=== PATIENT | female | born 1995 | race Caucasian/White ===

== ENCOUNTER 2019-11-05 21:59 | Emergency (ER) | payer OTHER ==
[~2019-11-05] VITALS: Ht 170.2 cm; Wt 83.2 kg
[2019-11-05] MEDS ORDERED: famotidine 20mg tablet PO ONE (22:35)
[2019-11-05 22:51] VITALS: BP 116/74
== END 2019-11-05 22:53 | disposition home or self-care (01) ==
LOC: ER 22:00
DX: L50.9 Urticaria, unspecified (principal); T39.1X5A Adverse effect of 4-Aminophenol derivatives, initial encounter; Z88.0 Allergy status to penicillin; Z88.5 Allergy status to narcotic agent; Z91.018 Allergy to other foods; Y92.89 Other specified places as the place of occurrence of the external cause
CPT/HCPCS: 99282

== ENCOUNTER 2020-05-13 08:28 | Emergency (ER) | payer OTHER ==
[~2020-05-13] VITALS: Ht 172.7 cm; Wt 86.4 kg
[2020-05-13] MEDS ORDERED: CLIN150C2 PO (08:56)
[2020-05-13] MEDS ORDERED: POLY119P2 PO (08:56)
[2020-05-13 09:10] VITALS: BP 126/70
--- NOTE | 2020-05-13 09:15 | NUR ---
PT complaining of sore throat. Strep test and mono test performed. Pt given instructions by Dr. Catalan on pain relief.
[2020-05-13] MEDS ORDERED: dexamethasone 4mg/ml inj IM ONE (09:35)
[2020-05-13 10:05] LABS: MONOTEST NEGATIVE (Neg)
--- NOTE | 2020-05-16 23:01 | NUR ---
Notified pt that the culture was + for strept. She does have in her hands the prescription, I instructed her to please fill that prescription and take them per Dr. Fuentes' orders. She will.
== END 2020-05-13 09:47 | disposition home or self-care (01) ==
LOC: ER 08:29
DX: J02.9 Acute pharyngitis, unspecified (principal); K59.00 Constipation, unspecified; H92.03 Otalgia, bilateral; Z88.0 Allergy status to penicillin; Z88.8 Allergy status to other drugs, medicaments and biological substances; Z79.2 Long term (current) use of antibiotics; Z79.899 Other long term (current) drug therapy
CPT/HCPCS: 36415; 86308; 87081; 87880; 96372; 99283; J1100